=== PATIENT | male | born 1975 | race Two or more races ===

== ENCOUNTER 2025-07-25 20:42 | Emergency (ER) | payer OTHER ==
[~2025-07-25] VITALS: Ht 167.6 cm; Wt 90.0 kg
[2025-07-25 22:30] VITALS: BP 137/68; PULSE 68; RESP 16; TEMP 97.3; O2SAT 98
[2025-07-25] MEDS ORDERED: IBUP-1492 PO (22:33)
== END 2025-07-25 23:23 | disposition home or self-care (01) ==
LOC: EMS 20:42
DX: S92.401A Displaced unspecified fracture of right great toe, initial encounter for closed fracture (principal); W22.8XXA Striking against or struck by other objects, initial encounter; Y93.89 Activity, other specified; Y92.89 Other specified places as the place of occurrence of the external cause; Y99.8 Other external cause status
CPT/HCPCS: 99283